=== PATIENT | female | born 1955 | race Caucasian/White ===

== ENCOUNTER 2020-05-24 18:03 | Emergency (ER) | payer BC ==
[~2020-05-24] VITALS: Ht 162.6 cm; Wt 68.9 kg
--- NOTE | 2020-05-24 18:23 | NUR ---
ED Nurse Note: pt presents to ED c/o HANCOCK, cough and fatigue x 1 week. pt's tested (+) for COVID and is here to receive Regeneron infusion. pt reports she tested (-) but is feeling symptomatic, has many pre-existing conditions including DM, HTN and CA; she was advised by a friend who is an MD to come receive the antibody infusion.
[2020-05-24 18:25] VITALS: BP 129/75
[2020-05-24] MEDS ORDERED: Albuterol/Ipratropium 3ml neb HHN ONE (19:15)
[2020-05-24] MEDS ORDERED: PREDNISONE20 MG ORAL (20:07)
[2020-05-24 20:18] VITALS: BP 129/75
--- NOTE | 2020-05-24 20:18 | NUR ---
ER DISCHARGE NOTE: Patient is cleared to be discharged per ERMD, pt is aox4, on room air, with stable vital signs. pt was given dc and prescription instructions, pt was able to verbalize understanding, pt id band removed without complications. pt is able to ambulate with steady gait. pt took all belongings.
--- NOTE | 2020-05-25 14:24 | Emergency Room Report ---
History of Present Illness General Chief Complaint: Flu Like Symptoms Source: Patient Present Illness HPI 65-year-old female presents for evaluation. Patient's is here because he tested positive for Covid and is receiving Regeneron infusion. She states that she has been exposed to her but she has tested negative for Covid. Is concerned because she has history of cancer. Coughing, body aches, wheezing. History of asthma. Denies chest pain or shortness of breath. No other aggravating relieving factors. 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 COVID-19 Screening: Negative COVID-19 COVID-19 Testing Source: 05/24/20 Patient History Past Medical History: DM, asthma Past Surgical History: none Pertinent Family History: none Social History: Denies: smoking, alcohol use, drug use Now: No Immunizations: UTD Reviewed Nursing Documentation: PMH: Agreed; PSxH: Agreed Nursing Documentation-PMH Hx Cardiac Problems: Yes - hyperlipidemia Hx Hypertension: Yes Hx Asthma: Yes Hx Diabetes: Yes Hx Cancer: Yes Review of Systems All Other Systems: negative except mentioned in HPI Physical Exam Vital Signs Date Time Temp Pulse Resp B/P (MAP) Pulse Ox O2 Delivery O2 Flow Rate FiO2 05/24/20 18:16 98.2 91 18 129/75 (93) 96 Room Air 05/24/20 19:32 21 Sp02 EP Interpretation: reviewed, normal General Appearance: no apparent distress, alert, GCS 15, non-toxic Head: normocephalic, atraumatic Eyes: bilateral eye normal inspection, bilateral eye PERRL ENT: hearing grossly normal, normal pharynx, no angioedema, normal voice Neck: full range of motion, supple/symm/no masses Respiratory: chest non-tender, lungs clear, normal breath sounds, speaking full sentences, wheezing Cardiovascular #1: regular rate, rhythm, no edema Cardiovascular #2: 2+ carotid (R), 2+ carotid (L), 2+ radial (R), 2+ radial (L), 2+ dorsalis pedis (R), 2+ dorsalis pedis (L) Gastrointestinal: normal bowel sounds, non tender, soft, non-distended, no guarding, no rebound Rectal: deferred Genitourinary: normal inspection, no CVA tenderness Musculoskeletal: back normal, normal range of motion, gait/station normal, non- tender Neurologic: alert, motor strength/tone normal, oriented x3, sensory intact, responsive, speech normal Psychiatric: judgement/insight normal, memory normal, mood/affect normal, no suicidal/homicidal ideation Reflexes: 3+ bicep (R), 3+ bicep (L), 3+ tricep (R), 3+ tricep (L), 3+ knee (R), 3+ knee (L) Skin: no rash Lymphatic: no adenopathy Medical Decision Making Diagnostic Impression: Primary Impression: Upper respiratory infection Qualified Codes: J06.9 - Acute upper respiratory infection, unspecified ER Course Hospital Course 65-year-old female presents with cough wheezing. tested positive for Covid Differential diagnoses include: URI, bronchitis, asthma/COPD, pneumonia Clinical course Patient placed on stretcher. After initial history and physical I ordered prednisone and nebulizer treatment On reassessment symptoms improved. Wheezing resolved. I discussed findings with patient. Explained that she is not a candidate for infusion if she is not Covid positive. I offered to check her again today and she agreed. Rapid Covid negative. I explained that the likelihood of her being Covid positive is high given her exposure to in close proximity. When she does in fact test positive she will be a candidate for the monoclonal antibody infusion. States she will follow-up with her PMD Diagnosis - URI Stable and discharged home with prescriptions for Rx prednisone. Instructed to followup with PMD. Return to ED if symptoms recur or worsen Last Vital Signs Date Time Temp Pulse Resp B/P (MAP) Pulse Ox O2 Delivery O2 Flow Rate FiO2 05/24/20 20:18 98.2 18 129/75 96 Room Air 21 05/24/20 19:32 91 Status: improved Disposition: HOME, SELF-CARE Condition: Stable Scripts Prednisone* (PREDNISONE*) 20 Mg Tablet 40 MG ORAL DAILY, #10 TAB Prov: Chetan Monteiro MD 05/24/20 Referrals: NON PHYSICIAN (PCP) Patient Instructions: Upper Respiratory Infection, Adult, [id number] Additional Instructions: continue to self isolate. If you test positive for Covid you can return to the ED for antibody infusion. Please have your PMD call us before you come to the ED Chetan Monteiro MD May 25, 2020 14:24
== END 2020-05-24 20:19 | disposition home or self-care (01) ==
LOC: EMR 18:48
DX: J06.9 Acute upper respiratory infection, unspecified (principal); E78.5 Hyperlipidemia, unspecified; I10 Essential (primary) hypertension; J45.909 Unspecified asthma, uncomplicated; E11.9 Type 2 diabetes mellitus without complications; Z85.9 Personal history of malignant neoplasm, unspecified
CPT/HCPCS: 94640; 99283; J7512; U0002; J7620